=== PATIENT | male | born 1995 | race Caucasian/White ===

== ENCOUNTER → 2020-04-14 | Outpatient (CLI) | payer SELFPAY ==
[2020-04-14 16:50] LABS: HCT 50.6 % (39.0-53.0); HGB 16.6 gm/dL (13.0-17.5); MCH 30.8 pg (25.0-35.0); MCHC 32.7 g/dL (31.0-37.0); Mean Platelet Volume 7.9; Platelet Count 272 k/uL (150-450); RBC 5.38 m/uL (4.30-5.90); RDW 12.4 % (11.5-15.5); WBC 13.1 k/uL (3.8-10.6)
[2020-04-15 01:17] LABS: African American GFR (CKD) 119.9 (60.0-200.0); Albumin 4.8 g/dL (3.80-4.90); Albumin/Globulin Ratio 2.4 (1.60-3.17); Anion Gap 10.8 mmol/L (4.00-12.00); Calcium 9.6 mg/dL (8.7-10.3); Carbon Dioxide 26.2 mmol/L (21.6-31.8); Non-African American GFR(CKD) 103.4 (60.0-200.0); Potassium 4.3 mmol/L (3.5-5.5); Total Bilirubin 0.7 mg/dL (0.2-1.2); Total Protein 6.8 g/dL (6.2-8.2)
== END | disposition home or self-care (01) ==
LOC: LABWHC1 15:47
PROVIDERS: ATTEND Internal Medicine
DX: E86.0 Dehydration (principal); R53.83 Other fatigue
CPT/HCPCS: 36415; 80053; 85027

== ENCOUNTER 2020-04-28 22:48 | Emergency (ER) | payer OTHER ==
[2020-04-28 22:53] VITALS: RESP 18
[2020-04-28] MEDS ORDERED: SODIUM CHLORIDE 0.9% 1,000 ML IV STA (23:16)
[2020-04-28 23:30] LABS: Glucose,Whole Blood 137 mg/dL (75-99)
[2020-04-29 00:03] LABS: Basophils # (A) 0.1 k/uL (0-0.2); Basophils % (A) 1 %; Eosinophils # (A) 0.3 k/uL (0-0.7); Eosinophils % (A) 3 %; HCT 50.7 % (39.0-53.0); HGB 16.5 gm/dL (13.0-17.5); Lymphocytes # (A) 1.7 k/uL (1.0-4.8); Lymphocytes % (A) 17 %; MCH 29.8 pg (25.0-35.0); MCHC 32.6 g/dL (31.0-37.0); MCV 91.5 fL (80.0-100.0); Mean Platelet Volume 6.9; Monocytes # (A) 0.5 k/uL (0-1.0); Monocytes % (A) 5 %; Neutrophils # (A) 7.2 k/uL (1.3-7.7); Neutrophils % (A) 73 %; Platelet Count 355 k/uL (150-450); RBC 5.53 m/uL (4.30-5.90); RDW 12.3 % (11.5-15.5); WBC 9.9 k/uL (3.8-10.6)
[2020-04-29 00:13] LABS: Appearance,Urine Clear (Clear); Bacteria,Urine Rare /hpf; Bilirubin,Urine Negative (Negative); Blood,Urine Negative (Negative); Color,Urine Colorless; Glucose,Urine (UA) Negative (Negative); Ketones,Urine Negative (Negative); Leukocyte Esterase,Urine Large (Negative); Mucus,Urine Rare /hpf; Nitrite,Urine Negative (Negative); PH, Urine 6.5 (5.0-8.0); Protein,Urine Negative (Negative); RBC,Urine <1 /hpf (0-5); Specific Gravity,Urine 1.003 (1.001-1.035); Urobilinogen,Urine <2.0 mg/dL (<2.0); WBC,Urine 40 /hpf (0-5)
[2020-04-29 00:16] LABS: ALT 26 U/L (4-49); AST 25 U/L (17-59); African American GFR (CKD) >90 (>60 ml/min/1.73 sqM); Albumin 4.9 g/dL (3.5-5.0); Alkaline Phosphatase 96 U/L (38-126); Anion Gap 10 mmol/L; Blood Urea Nitrogen 6 mg/dL (9-20); Calcium 10.2 mg/dL (8.4-10.2); Carbon Dioxide 27 mmol/L (22-30); Chloride 102 mmol/L (98-107); Glucose 74 mg/dL (74-99); Non-African American GFR(CKD) >90 (>60 ml/min/1.73 sqM); Sodium 139 mmol/L (137-145); Total Bilirubin 0.4 mg/dL (0.2-1.3); Total Protein 7.9 g/dL (6.3-8.2)
--- NOTE | 2020-04-29 00:18 | ED ---
General Adult HPI - General Chief complaint: Recheck/Abnormal Lab/Rx Stated complaint: Dehydrated Time Seen by Provider: 04/28/20 22:56 Source: patient Mode of arrival: ambulatory Limitations: no limitations - History of Present Illness Initial comments: Patient is a 24-year-old male presenting to the emergency Department with complaints of feeling lightheaded, shaky, feels like he is dehydrated. Patient states he has been feeling this way for about a month now. He states he has frequent urination, feels like he is thirsty all the time. He denies history of diabetes states his dad is diabetic. Patient states he did go to his PCP, Dr. Barcenas for this, they did check his sugar in the office and it was normal. He was told to drink more water and Gatorade. Patient states his symptoms have continued over the past few weeks and today seems to be worse over decided to be seen. He denies any chest pain, shortness of breath, fevers. He does have some intermittent diarrhea, no nausea or vomiting. He denies any abdominal pain. He denies any dysuria or discharge. He has no further complaints at this time. Upon arrival to the ER, patient was tachycardia at 119, rest of vitals normal. - Related Data Previous Rx's Medication Instructions Recorded Sulfamethox-Tmp 800-160Mg [Bactrim 2 each PO Q12HR #40 tab 03/26/16 DS 800-160 mg] Cephalexin [Keflex] 500 mg PO Q6HR 7 Days #28 cap 04/29/20 Allergies Allergy/AdvReac Type Severity Reaction Status Date / Time No Known Allergies Allergy Verified 04/28/20 22:53 Review of Systems ROS Statement: Those systems with pertinent positive or pertinent negative responses have been documented in the HPI. ROS Other: All systems not noted in ROS Statement are negative. Past Medical History Past Medical History: No Reported History History of Any Multi-Drug Resistant Organisms: None Reported Past Surgical History: Back Surgery Past Psychological History: No Psychological Hx Reported Smoking Status: Never smoker Past Alcohol Use History: None Reported Past Drug Use History: None Reported General Exam - General Exam Comments Initial Comments: GENERAL: Patient is well-developed and well-nourished. Patient appears to be slightly diaphoretic, uncomfortable. HEAD: Atraumatic, normocephalic. EYES: Pupils equal round and reactive to light, extraocular movements intact, sclera anicteric, conjunctiva are normal. Eyelids were unremarkable. ENT: TMs normal, nares patent, oropharynx clear without exudates. Moist mucous membranes. NECK: Normal range of motion, supple without lymphadenopathy or JVD. LUNGS: Unlabored respirations. Breath sounds clear to auscultation bilaterally and equal. No wheezes rales or rhonchi. HEART: Tachycardic rate and rhythm without murmurs, rubs or gallops. ABDOMEN: Soft, nontender, normoactive bowel sounds. No guarding, no rebound. No masses appreciated. : Deferred MUSCULOSKELETAL: Normal extremities with adequate strength and normal range of motion, no pitting or edema. No clubbing or cyanosis. NEUROLOGICAL: Patient is alert and oriented x 3. Motor and sensory are also intact. Cranial nerves II through XII grossly intact. Symmetrical smile. Normal speech, normal gait. PSYCH: Normal mood, normal affect. SKIN: Warm, Dry, normal turgor, no rashes or lesions noted. Limitations: no limitations Course Vital Signs 04/28/20 22:49 Temperature 98.0 F Pulse Rate 119 H Respiratory 18 Rate Blood Pressure 156/87 O2 Sat by Pulse 98 Oximetry EKG Findings - EKG Comments: EKG Findings:: Sinus tachycardia, nonspecific T-wave abnormality, no signs of acute ischemia. Ventricular rate 107, LA interval 150, QT 310. Medical Decision Making - Medical Decision Making Patient is a 24-year-old male here for concerns for dehydration, urinary frequency and being thirsty. He denies history of diabetes. Patient blood s ugar was 137, his labs show a normal white count. His lactic acid was elevated at 2.2. His urine did show a large amount of WBCs, bacteria. Urine culture is pending. Acetone is negative. I did add Chlamydia and gonorrhea test to his urine, those are pending. Patient will be given 1 g Rocephin, azithromycin to cover for possible STD as cause of his infection. Patient will be sent home on Keflex. He is in agreement with this plan of care. Patient's heart rate has returned to normal. He is stable for discharge. Return parameters were discussed with the patient and he verbalized understanding. - Lab Data Result diagrams: 04/28/20 23:33 04/28/20 23:33 Lab Results 1004/28/20 04/28/20 Range/Units 23:18 23:33 23:33 WBC 9.9 (3.8-10.6) k/uL RBC 5.53 (4.30-5.90) m/uL Hgb 16.5 (13.0-17.5) gm/dL Hct 50.7 (39.0-53.0) % MCV 91.5 (80.0-100.0) fL MCH 29.8 (25.0-35.0) pg MCHC 32.6 (31.0-37.0) g/dL RDW 12.3 (11.5-15.5) % Plt Count 355 (150-450) k/uL Neutrophils % 73 % Lymphocytes % 17 % Monocytes % 5 % Eosinophils % 3 % Basophils % 1 % Neutrophils # 7.2 (1.3-7.7) k/uL Lymphocytes # 1.7 (1.0-4.8) k/uL Monocytes # 0.5 (0-1.0) k/uL Eosinophils # 0.3 (0-0.7) k/uL Basophils # 0.1 (0-0.2) k/uL Sodium (137-145) mmol/L Potassium (3.5-5.1) mmol/L Chloride (98-107) mmol/L Carbon Dioxide (22-30) mmol/L Anion Gap mmol/L BUN (9-20) mg/dL Creatinine (0.66-1.25) mg/dL Est GFR (CKD-EPI)AfAm (>60 ml/min/1.73 sqM) Est GFR (CKD-EPI)NonAf (>60 ml/min/1.73 sqM) Glucose (74-99) mg/dL POC Glucose (mg/dL) 137 H (75-99) mg/dL POC Glu C[employer] Tender ID Darrel, Rosetta Plasma Lactic Acid Shmuel (0.7-2.0) mmol/L Calcium (8.4-10.2) mg/dL Total Bilirubin (0.2-1.3) mg/dL AST (17-59) U/L ALT (4-49) U/L Alkaline Phosphatase (38-126) U/L Total Protein (6.3-8.2) g/dL Albumin (3.5-5.0) g/dL TSH (0.465-4.680) mIU/L Urine Color Colorless Urine Appearance Clear (Clear) Urine pH 6.5 (5.0-8.0) Ur Specific [place] 1.003 (1.001-1.035) Urine Protein Negative (Negative) Urine Glucose (UA) Negative (Negative) Urine Ketones Negative (Negative) Urine Blood Negative (Negative) Urine Nitrite Negative (Negative) Urine Bilirubin Negative (Negative) Urine Urobilinogen <2.0 (<2.0) mg/dL Ur Leukocyte Esterase Large H (Negative) Urine RBC <1 (0-5) /hpf Urine WBC 40 H (0-5) /hpf Urine WBC Clumps Rare H (None) /hpf Urine Bacteria Rare H (None) /hpf Urine Mucus Rare H (None) /hpf Acetone, Qual (Negative) 04/28/20 04/28/20 Range/Units 23:33 23:33 WBC (3.8-10.6) k/uL RBC (4.30-5.90) m/uL Hgb (13.0-17.5) gm/dL Hct (39.0-53.0) % MCV (80.0-100.0) fL MCH (25.0-35.0) pg MCHC (31.0-37.0) g/dL RDW (11.5-15.5) % Plt Count (150-450) k/uL Neutrophils % % Lymphocytes % % Monocytes % % Eosinophils % % Basophils % % Neutrophils # (1.3-7.7) k/uL Lymphocytes # (1.0-4.8) k/uL Monocytes # (0-1.0) k/uL Eosinophils # (0-0.7) k/uL Basophils # (0-0.2) k/uL Sodium 139 (137-145) mmol/L Potassium 4.0 (3.5-5.1) mmol/L Chloride 102 (98-107) mmol/L Carbon Dioxide 27 (22-30) mmol/L Anion Gap 10 mmol/L BUN 6 L (9-20) mg/dL Creatinine 0.80 (0.66-1.25) mg/dL Est GFR (CKD-EPI)AfAm >90 (>60 ml/min/1.73 sqM) Est GFR (CKD-EPI)NonAf >90 (>60 ml/min/1.73 sqM) Glucose 74 (74-99) mg/dL POC Glucose (mg/dL) (75-99) mg/dL POC Glu Cone Tender ID Plasma Lactic Acid Shmuel 2.2 H* (0.7-2.0) mmol/L Calcium 10.2 (8.4-10.2) mg/dL Total Bilirubin 0.4 (0.2-1.3) mg/dL AST 25 (17-59) U/L ALT 26 (4-49) U/L Alkaline Phosphatase 96 (38-126) U/L Total Protein 7.9 (6.3-8.2) g/dL Albumin 4.9 (3.5-5.0) g/dL TSH 0.716 (0.465-4.680) mIU/L Urine Color Urine Appearance (Clear) Urine pH (5.0-8.0) Ur Specific [place] (1.001-1.035) Urine Protein (Negative) Urine Glucose (UA) (Negative) Urine Ketones (Negative) Urine Blood (Negative) Urine Nitrite (Negative) Urine Bilirubin (Negative) Urine Urobilinogen (<2.0) mg/dL Ur Leukocyte Esterase (Negative) Urine RBC (0-5) /hpf Urine WBC (0-5) /hpf Urine WBC Clumps (None) /hpf Urine Bacteria (None) /hpf Urine Mucus (None) /hpf Acetone, Qual Negative (Negative) Disposition Clinical Impression: UTI (urinary tract infection) Disposition: HOME SELF-CARE Condition: Stable Instructions (If sedation given, give patient instructions): Urinary Tract Infection in Men (ED) Additional Instructions: Please return to the Emergency Department if symptoms worsen or any other concerns. Take antibiotics as prescribed. Follow up with PCP. Prescriptions: Cephalexin [Keflex] 500 mg PO Q6HR 7 Days #28 cap Is patient prescribed a controlled substance at d/c from ED?: No Referrals: Victorina Barcenas MD [Primary Care Provider] - 1-2 days
[2020-04-29] MEDS ORDERED: AZITHROMYCIN 250 MG TAB PO STA (00:55)
[2020-04-29] MEDS ORDERED: cefTRIAXone IN SWFI 1,000 MG/10 ML SYRINGE IVP STA (00:55)
[2020-04-29 02:39] VITALS: BP 130/82; PULSE 81; TEMP 98.3
== END 2020-04-29 02:30 | disposition home or self-care (01) ==
LOC: EC 22:48
DX: N39.0 Urinary tract infection, site not specified (principal); R00.0 Tachycardia, unspecified
CPT/HCPCS: 36415; 80053; 81001; 82009; 83605; 84443; 85025; 87086; 87491; 87591; 93005; 96361; 96374; 99284

== ENCOUNTER 2021-10-19 03:50 | Emergency (ER) | payer OTHER ==
[2021-10-19 04:00] VITALS: TEMP 97.2
[2021-10-19] MEDS ORDERED: MORPHINE SULFATE 4 MG/ML SYRINGE IV STA (04:08)
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
[2021-10-19 04:20] LABS: Basophils # (A) 0.1 k/uL (0-0.2); Basophils % (A) 1 %; Eosinophils # (A) 0.8 k/uL (0-0.7); Eosinophils % (A) 9 %; HCT 47.3 % (39.0-53.0); HGB 15.9 gm/dL (13.0-17.5); Lymphocytes # (A) 3.9 k/uL (1.0-4.8); Lymphocytes % (A) 43 %; MCH 31.3 pg (25.0-35.0); MCHC 33.6 g/dL (31.0-37.0); MCV 93.1 fL (80.0-100.0); Mean Platelet Volume 7.6; Monocytes # (A) 0.4 k/uL (0-1.0); Monocytes % (A) 5 %; Neutrophils # (A) 3.7 k/uL (1.3-7.7); Neutrophils % (A) 40 %; Platelet Count 320 k/uL (150-450); RBC 5.08 m/uL (4.30-5.90); RDW 13.1 % (11.5-15.5); WBC 9.2 k/uL (3.8-10.6)
[2021-10-19 04:28] LABS: Partial Thromboplastin Time 22.3 sec (22.0-30.0); Prothrombin Time 10.8 sec (9.0-12.0)
[2021-10-19 04:31] LABS: ALT 22 U/L (4-49); AST 24 U/L (17-59); African American GFR (CKD) >90 (>60 ml/min/1.73 sqM); Albumin 4.3 g/dL (3.5-5.0); Alcohol <10 mg/dL; Alkaline Phosphatase 74 U/L (38-126); Anion Gap 7 mmol/L; Blood Urea Nitrogen 12 mg/dL (9-20); Calcium 9.3 mg/dL (8.4-10.2); Carbon Dioxide 29 mmol/L (22-30); Chloride 104 mmol/L (98-107); Glucose 164 mg/dL (74-99); Non-African American GFR(CKD) >90 (>60 ml/min/1.73 sqM); Potassium 3.6 mmol/L (3.5-5.1); Sodium 140 mmol/L (137-145); Total Bilirubin 0.5 mg/dL (0.2-1.3); Total Protein 7.3 g/dL (6.3-8.2)
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
--- NOTE | 2021-10-19 04:45 | XR ---
EXAMINATION TYPE: XR chest 1V portable DATE OF EXAM: 10/19/2021 COMPARISON: NONE HISTORY: Pain TECHNIQUE: Single view FINDINGS: Heart is normal. Lungs are clear of consolidation. There are no hilar masses. Costophrenic angles are clear. There is mid thoracic spine posterior fusion surgery. There is anterior dislocation of the right shoulder joint. No rib fracture seen. No pneumothorax. IMPRESSION: Dislocated right shoulder joint. No acute lung disease. Normal heart.
[2021-10-19] MEDS ORDERED: HYDROmorphone 1 MG/ML 1 ML SYRINGE IVP STA (05:02)
[2021-10-19] MEDS ORDERED: PROPOFOL 10 MG/ML 20 ML VIAL IV ONE ×2 (05:48→06:22)
[2021-10-19 06:17] VITALS: BP 128/78; PULSE 86; RESP 10
--- NOTE | 2021-10-19 06:30 | XR ---
EXAMINATION TYPE: XR shoulder limited RT DATE OF EXAM: 10/19/2021 COMPARISON: Today HISTORY: Post reduction TECHNIQUE: FINDINGS: Single view appears to show anatomic reduction of the glenohumeral joint. There is some deformity of the greater tuberosity of the humerus with a fracture. IMPRESSION: Anatomic reduction.
== END 2021-10-19 07:11 | disposition home or self-care (01) ==
LOC: EC 03:50
DX: S42.251A Displaced fracture of greater tuberosity of right humerus, initial encounter for closed fracture (principal); V86.55XA Driver of 3- or 4- wheeled all-terrain vehicle (ATV) injured in nontraffic accident, initial encounter; Y92.410 Unspecified street and highway as the place of occurrence of the external cause; Z87.891 Personal history of nicotine dependence
CPT/HCPCS: 99284; 96374; 96375; 23665; 99152; 36415; 86900; 86901; 80053; 83605; 84484; 85025; 85610; 85730; 86850; 80320; 73020; 71045; J2270; J1170; J2704; 93005